=== PATIENT | male | born 1995 | race African-American/Black ===

== ENCOUNTER 2020-11-30 04:41 | Emergency (ER) | payer BC ==
[2020-11-30] MEDS ORDERED: Acetaminophen 500 MG TAB ONE (05:43)
[2020-11-30] MEDS ORDERED: Ibuprofen 800 MG TAB ONE (05:52)
[2020-11-30 16:38] LABS: SARS-CoV-2 PCR by NAA DETECTED (NotDetected)
== END 2020-11-30 05:57 | disposition home or self-care (01) ==
LOC: CSHERS 04:41
DX: U07.1 COVID-19 (principal); F17.210 Nicotine dependence, cigarettes, uncomplicated
CPT/HCPCS: 99284; U0003; U0005